=== PATIENT | female | born 1935 | race Two or more races ===

== ENCOUNTER 2018-04-07 08:27 | Outpatient (CLI) | payer OTHER | END 2018-04-07 08:40 | disposition home or self-care (01) | LOC: LAB 08:27 | DX: I10 Essential (primary) hypertension (principal); E78.4 Other hyperlipidemia ==

== ENCOUNTER 2018-08-14 08:42 | Outpatient (CLI) | payer OTHER | END 2018-08-14 12:57 | disposition home or self-care (01) | LOC: LAB 08:42 | DX: E78.49 Other hyperlipidemia (principal) ==

== ENCOUNTER 2019-07-01 08:15 | Outpatient (CLI) | payer OTHER | END 2019-07-01 15:00 | disposition home or self-care (01) | LOC: LAB 08:15 | DX: I10 Essential (primary) hypertension (principal) ==

== ENCOUNTER → 2021-09-13 | Outpatient (CLI) | payer OTHER | END | disposition home or self-care (01) | LOC: MAMO-SONO 09:37 | PROVIDERS: ATTEND Surgery | DX: N60.11 Diffuse cystic mastopathy of right breast (principal); N60.12 Diffuse cystic mastopathy of left breast; Z12.31 Encounter for screening mammogram for malignant neoplasm of breast ==

== ENCOUNTER 2021-10-01 13:05 | Outpatient (CLI) | payer OTHER | END 2021-10-01 14:43 | disposition home or self-care (01) | LOC: SONOGRAMA 13:05 | PROVIDERS: ATTEND Surgery | DX: D24.2 Benign neoplasm of left breast (principal); N60.11 Diffuse cystic mastopathy of right breast; N60.12 Diffuse cystic mastopathy of left breast; R92.0 Mammographic microcalcification found on diagnostic imaging of breast ==

== ENCOUNTER → 2022-02-05 15:37 | Outpatient (CLI) | payer OTHER | END | disposition home or self-care (01) | LOC: EKG 09:12 | PROVIDERS: ATTEND Surgery | DX: I10 Essential (primary) hypertension (principal) ==

== ENCOUNTER 2022-02-15 07:05 | Day surgery (SDC) | payer OTHER ==
[~2022-02-15 07:05] MED LIST: TOPROL XL25 M1 PO
== END 2022-02-15 19:20 | disposition home or self-care (01) ==
LOC: CIR.AMB 07:05
PROVIDERS: ATTEND Surgery
DX: D05.11 Intraductal carcinoma in situ of right breast (principal); Z20.822 Contact with and (suspected) exposure to COVID-19; I10 Essential (primary) hypertension; Z88.0 Allergy status to penicillin; R73.03 Prediabetes; R42 Dizziness and giddiness

== ENCOUNTER 2022-08-07 10:46 | Outpatient (CLI) | payer OTHER | END 2022-08-07 14:55 | disposition home or self-care (01) | LOC: NUCLEAR 10:46 | PROVIDERS: ATTEND Internal Medicine | DX: M85.80 Other specified disorders of bone density and structure, unspecified site (principal) ==

== ENCOUNTER 2022-08-19 08:58 | Outpatient (CLI) | payer OTHER | END 2022-08-19 09:06 | disposition home or self-care (01) | LOC: MAMO-SONO 08:58 | PROVIDERS: ATTEND Internal Medicine | DX: D05.11 Intraductal carcinoma in situ of right breast (principal) ==

== ENCOUNTER 2022-11-21 09:50 | Outpatient (CLI) | payer OTHER | END 2022-11-21 09:51 | disposition home or self-care (01) | LOC: LAB 09:50 | PROVIDERS: ATTEND Internal Medicine | DX: H81.13 Benign paroxysmal vertigo, bilateral (principal); I10 Essential (primary) hypertension; N60.01 Solitary cyst of right breast; E55.9 Vitamin D deficiency, unspecified; Z83.3 Family history of diabetes mellitus ==

== ENCOUNTER 2023-08-01 08:41 | Outpatient (CLI) | payer OTHER | END 2023-08-01 08:47 | disposition home or self-care (01) | LOC: NUCLEAR 08:41 | PROVIDERS: ATTEND Internal Medicine | DX: I11.9 Hypertensive heart disease without heart failure (principal) ==

== ENCOUNTER → 2023-08-20 | Outpatient (CLI) | payer OTHER | END | disposition home or self-care (01) | LOC: MAMO-SONO 09:39 | PROVIDERS: ATTEND Surgery | DX: D05.11 Intraductal carcinoma in situ of right breast (principal); N60.11 Diffuse cystic mastopathy of right breast; N60.12 Diffuse cystic mastopathy of left breast; Z12.31 Encounter for screening mammogram for malignant neoplasm of breast ==

== ENCOUNTER 2024-08-25 08:26 | Outpatient (CLI) | payer OTHER | END 2024-08-25 08:32 | disposition home or self-care (01) | LOC: MAMO-SONO 08:26 | PROVIDERS: ATTEND Surgery | DX: N60.11 Diffuse cystic mastopathy of right breast (principal); N60.12 Diffuse cystic mastopathy of left breast; D05.11 Intraductal carcinoma in situ of right breast; Z12.31 Encounter for screening mammogram for malignant neoplasm of breast ==

== ENCOUNTER 2024-08-27 12:46 | Outpatient (CLI) | payer OTHER | END 2024-08-27 12:48 | disposition home or self-care (01) | LOC: NUCLEAR 12:46 | PROVIDERS: ATTEND Internal Medicine | DX: Z13.820 Encounter for screening for osteoporosis (principal); M81.0 Age-related osteoporosis without current pathological fracture ==

== ENCOUNTER 2025-02-16 08:20 | Outpatient (CLI) | payer OTHER | END 2025-02-16 08:21 | disposition home or self-care (01) | LOC: NUCLEAR 08:20 | PROVIDERS: ATTEND Internal Medicine Cardiovascular Disease | DX: I65.29 Occlusion and stenosis of unspecified carotid artery (principal) ==